=== PATIENT | female | born 1995 | race Caucasian/White ===

== ENCOUNTER → 2017-09-27 | Outpatient (CLI) | payer OTHER ==
[~2017-09-27] MED LIST: CHOL10005 PO; FOLI-68 PO; LAMO250T2 PO; LEVE500T73 PO; LEVO75TA73 PO; NORG1TAB74 PO
[2017-09-27 15:44] LABS: PLATELET COUNT, AUTOMATED 233 K/uL (150-450)
== END ==
LOC: LAB 15:13
PROVIDERS: ATTEND Physician Assistant
DX: G40.209 Localization-related (focal) (partial) symptomatic epilepsy and epileptic syndromes with complex partial seizures, not intractable, without status epilepticus (principal); E03.9 Hypothyroidism, unspecified
CPT/HCPCS: 36415; 80175; 80177; 82040; 82247; 82248; 84075; 84155; 84443; 84450; 84460; 85025

== ENCOUNTER 2018-01-19 18:01 | Emergency (ER) | payer OTHER ==
--- NOTE | 2018-01-19 18:03 | ER Report ---
History and Physical Time Seen By MD: 18:03 HPI/ROS CHIEF COMPLAINT: chest pain HISTORY OF PRESENT ILLNESS: This is a 22 year old female. She came to the ER from urgent care. She had been having some swelling around her eyes and a rash earlier today. Was also having some chest pain when trying to swallow, that would radiate from central chest up to her neck. Worsened when trying to swallow water or food. Started today while walking her dog. Discussed these symptoms with the pharmacist who recommended going to urgent care. She went to urgent care. Was given some Benadryl and Pepcid and Solu-Medrol. The rash and swelling is better, but pain in the chest and swallowing problems remain. She has no fevers or chills. She does share that she has had a problem with food getting stuck in her esophagus in the past as well. No fevers or chills. No other aggravating or relieving factors. She has no nausea or vomiting at this time. She feels a little short of breath. Very anxious as well. REVIEW OF SYSTEMS: Constitutional: No fevers or chills. Eyes: No vision changes. ENT: No sore throat. No congestion. Cardiovascular: No palpitations. Respiratory: No cough. Gastrointestinal: No abdominal pain. Genitourinary: No dysuria or trouble urinating. Skin: As above. Neurological: No weakness. No headache. Allergies: Coded Allergies: No Known Drug Allergies (Unverified , 01/19/18) Home Meds Active Scripts Ondansetron (ZOFRAN ODT) 4 Mg Tab.rapdis, 4 MG PO Q6H Y for NAUSEA/VOMITING, # 20 TAB.MATILDA 0 Refills Prov:NICKY BOBBY MD 01/19/18 Dicyclomine Hcl (DICYCLOMINE HCL) 10 Mg Capsule, 10 MG PO QID Y for SPASMS, #20 CAPSULE 0 Refills Prov:NICKY BOBBY MD 01/19/18 Reported Medications Clonazepam (CLONAZEPAM) 0.125 Mg Tab.rapdis, 0.125 MG PO DAILY, #7 TAB 01/19/18 Levothyroxine Sodium (LEVOTHYROXINE SODIUM) 75 Mcg Tablet, 75 MCG PO QDAY, TAB 04/24/17 Levetiracetam (LEVETIRACETAM) 500 Mg Tablet, 500 MG PO BID 04/24/17 Lamotrigine (LAMOTRIGINE) 250 Mg Tab.er.24, 250 MG PO BID 04/24/17 Discontinued Reported Medications Norgestimate-Ethinyl Estradiol (SPRINTEC) 1 Each Tablet, 1 EACH PO DAILY 04/24/17 Cholecalciferol (Vitamin D3) (VITAMIN D3) 1,000 Unit Tablet, 1000 UNIT PO DAILY , TAB 04/24/17 Folic Acid (FOLIC ACID) 1 Mg Tablet, 1 MG PO QDAY, TAB 04/24/17 Reviewed Nurses Notes: Yes Constitutional Vital Sign - Last 24 Hours 01/19/18 01/19/18 01/19/18 01/19/18 18:04 18:06 18:30 18:31 Temp 98.7 Pulse 102 112 Resp 20 B/P (MAP) 122/82 122/82 (95) 99/69 (79) Pulse Ox 98 O2 Delivery Room Air 01/19/18 01/19/18 01/19/18 01/19/18 19:00 19:30 19:31 19:40 Pulse 116 99 Resp 28 B/P (MAP) 101/69 (80) 113/72 (86) 108/71 (83) Pulse Ox 95 88 01/19/18 01/19/18 01/19/18 01/19/18 20:19 20:30 20:35 21:00 Pulse 107 Resp 9 B/P (MAP) 113/77 (89) 116/77 (90) 115/74 (88) Pulse Ox 95 01/19/18 01/19/18 21:05 21:32 Pulse ??? 115 B/P (MAP) 104/76 (85) Pulse Ox 96 Physical Exam General Appearance: The patient is alert. Anxious, and having mild distress due to her symptoms. Non-toxic in appearance. Eyes: Pupils are equal, round. No pallor, injection or icterus. ENT: Mucous membranes are moist. Normal oral mucosa. Posterior oropharynx is normal. Normal tympanic membranes and canals. Neck: Supple and non tender. No lymphadenopathy. Respiratory: Lungs are clear to auscultation. There are no retractions or accessory muscle use. Cardiovascular: Regular rate and rhythm. No murmurs, gallops or rubs. Normal capillary refill. No edema. Gastrointestinal: Abdomen is soft and non tender. Nondistended. Normal active bowel sounds. No costovertebral angle tenderness with percussion. Neurological: Alert and oriented x3. Cranial nerves II through XII show no acute deficits on my exam. No focal neurologic deficits in the extremities. Skin: Warm and dry. No rashes. Musculoskeletal: Extremities are nontender. Full range of motion. No tenderness in palpation of the cervical, thoracic and lumbar spine. Has some reproducible pain with palpation of the chest that seems to increase spasms in her throat and extends up to her neck. DIFFERENTIAL DIAGNOSIS: After history and physical exam, differential diagnosis was considered for chest pain including but not limited to myocardial ischemia, pericarditis pulmonary embolus, chest wall pain, pleural inflammation and pulmonary infectious causes. We'll look at these various causes but also consider that this sounds more like esophageal spasming, especially with her history of having food getting stuck in her esophagus in the past and will likely need to see a GI specialist or someone who can perform an EGD. Medical Decision Making Data Points Result Diagram: 01/19/18 18101/19/18 181 Laboratory Hematology Test 01/19/18 18:13 01/19/18 19:42 Red Blood Count 4.57 M/uL (4.17-5.56) Mean Corpuscular Volume 91.2 fL (80.0-96.0) Mean Corpuscular Hemoglobin 31.1 pg (26.0-33.0) Mean Corpuscular Hemoglobin Concent 34.1 g/dL (32.0-36.0) Red Cell Distribution Width 14.2 % (11.5-14.5) Mean Platelet Volume 8.3 fL (7.2-11.1) Neutrophils (%) (Auto) 82.3 % (39.4-72.5) Lymphocytes (%) (Auto) 13.8 % (17.6-49.6) Monocytes (%) (Auto) 2.8 % (4.1-12.4) Eosinophils (%) (Auto) 0.9 % (0.4-6.7) Basophils (%) (Auto) 0.2 % (0.3-1.4) Nucleated RBC Relative Count (auto) 0.0 /100WBC Neutrophils # (Auto) 9.2 K/uL (2.0-7.4) Lymphocytes # (Auto) 1.5 K/uL (1.3-3.6) Monocytes # (Auto) 0.3 K/uL (0.3-1.0) Eosinophils # (Auto) 0.1 K/uL (0.0-0.5) Basophils # (Auto) 0.0 K/uL (0.0-0.1) Nucleated RBC Absolute Count (auto) 0.00 K/uL D-Dimer Quantitative (PE/DVT) 0.60 ug/ml (0-0.50) Sodium Level 145 mmol/L (137-145) Potassium Level 3.5 mmol/L (3.5-5.0) Chloride Level 108 mmol/L (98-107) Carbon Dioxide Level 21 mmol/L (22-31) Blood Urea Nitrogen 17 mg/dl (7-18) Creatinine 1.00 mg/dl (0.52-1.04) Glomerular Filtration Rate Calc > 60.0 Random Glucose 108 mg/dl (75-110) Calcium Level 9.3 mg/dl (8.4-10.2) Total Bilirubin 0.3 mg/dl (0.2-1.3) Aspartate Amino Transf (AST/SGOT) 24 U/L (0-35) Alanine Aminotransferase (ALT/SGPT) 22 U/L (0-56) Alkaline Phosphatase 81 U/L (0-126) Troponin I < 0.012 ng/ml C-Reactive Protein < 0.5 mg/dl (<1.0) Total Protein 7.6 gm/dl (6.3-8.2) Albumin 4.3 g/dl (3.5-5.0) Human Chorionic Gonadotropin, Qual Negative (NEGATIVE) Urine Color Colorless Urine Clarity Clear Urine pH 5.0 pH (4.8-9.5) Urine Specific [place] 1.006 Urine Protein Negative mg/dL (NEGATIVE) Urine Glucose (UA) Negative mg/dL (NEGATIVE) Urine Ketones Negative mg/dL (NEGATIVE) Urine Blood Negative (NEGATIVE) Urine Nitrite Negative (NEGATIVE) Urine Bilirubin Negative (NEGATIVE) Urine Urobilinogen Negative mg/dL (0.2-1.9) Urine Leukocyte Esterase Negative (NEGATIVE) Urine RBC <1 /HPF (0-2/HPF) Urine WBC 1 /HPF (0-5/HPF) Urine Squamous Epithelial Cells None /LPF (</=FEW) Urine Bacteria Negative /HPF (NONE-FEW) Urine Hyaline Casts Few /LPF (NONE-FEW) Urine Mucus None /HPF (NONE-FEW) Chemistry Test 01/19/18 18:13 01/19/18 19:42 White Blood Count 11.2 k/uL (4.5-11.0) Red Blood Count 4.57 M/uL (4.17-5.56) Hemoglobin 14.2 g/dL (12.0-16.0) Hematocrit 41.7 % (34.0-47.0) Mean Corpuscular Volume 91.2 fL (80.0-96.0) Mean Corpuscular Hemoglobin 31.1 pg (26.0-33.0) Mean Corpuscular Hemoglobin Concent 34.1 g/dL (32.0-36.0) Red Cell Distribution Width 14.2 % (11.5-14.5) Platelet Count 203 K/uL (150-450) Mean Platelet Volume 8.3 fL (7.2-11.1) Neutrophils (%) (Auto) 82.3 % (39.4-72.5) Lymphocytes (%) (Auto) 13.8 % (17.6-49.6) Monocytes (%) (Auto) 2.8 % (4.1-12.4) Eosinophils (%) (Auto) 0.9 % (0.4-6.7) Basophils (%) (Auto) 0.2 % (0.3-1.4) Nucleated RBC Relative Count (auto) 0.0 /100WBC Neutrophils # (Auto) 9.2 K/uL (2.0-7.4) Lymphocytes # (Auto) 1.5 K/uL (1.3-3.6) Monocytes # (Auto) 0.3 K/uL (0.3-1.0) Eosinophils # (Auto) 0.1 K/uL (0.0-0.5) Basophils # (Auto) 0.0 K/uL (0.0-0.1) Nucleated RBC Absolute Count (auto) 0.00 K/uL D-Dimer Quantitative (PE/DVT) 0.60 ug/ml (0-0.50) Glomerular Filtration Rate Calc > 60.0 Calcium Level 9.3 mg/dl (8.4-10.2) Total Bilirubin 0.3 mg/dl (0.2-1.3) Aspartate Amino Transf (AST/SGOT) 24 U/L (0-35) Alanine Aminotransferase (ALT/SGPT) 22 U/L (0-56) Alkaline Phosphatase 81 U/L (0-126) Troponin I < 0.012 ng/ml C-Reactive Protein < 0.5 mg/dl (<1.0) Total Protein 7.6 gm/dl (6.3-8.2) Albumin 4.3 g/dl (3.5-5.0) Human Chorionic Gonadotropin, Qual Negative (NEGATIVE) Urine Color Colorless Urine Clarity Clear Urine pH 5.0 pH (4.8-9.5) Urine Specific [place] 1.006 Urine Protein Negative mg/dL (NEGATIVE) Urine Glucose (UA) Negative mg/dL (NEGATIVE) Urine Ketones Negative mg/dL (NEGATIVE) Urine Blood Negative (NEGATIVE) Urine Nitrite Negative (NEGATIVE) Urine Bilirubin Negative (NEGATIVE) Urine Urobilinogen Negative mg/dL (0.2-1.9) Urine Leukocyte Esterase Negative (NEGATIVE) Urine RBC <1 /HPF (0-2/HPF) Urine WBC 1 /HPF (0-5/HPF) Urine Squamous Epithelial Cells None /LPF (</=FEW) Urine Bacteria Negative /HPF (NONE-FEW) Urine Hyaline Casts Few /LPF (NONE-FEW) Urine Mucus None /HPF (NONE-FEW) Coagulation Test 01/19/18 18:13 D-Dimer Quantitative (PE/DVT) 0.60 ug/ml Urinalysis Test 01/19/18 19:42 Urine Color Colorless Urine Clarity Clear Urine pH 5.0 pH (4.8-9.5) Urine Specific [place] 1.006 Urine Protein Negative mg/dL (NEGATIVE) Urine Glucose (UA) Negative mg/dL (NEGATIVE) Urine Ketones Negative mg/dL (NEGATIVE) Urine Blood Negative (NEGATIVE) Urine Nitrite Negative (NEGATIVE) Urine Bilirubin Negative (NEGATIVE) Urine Urobilinogen Negative mg/dL (0.2-1.9) Urine Leukocyte Esterase Negative (NEGATIVE) Urine RBC <1 /HPF (0-2/HPF) Urine WBC 1 /HPF (0-5/HPF) Urine Squamous Epithelial Cells None /LPF (</=FEW) Urine Bacteria Negative /HPF (NONE-FEW) Urine Hyaline Casts Few /LPF (NONE-FEW) Urine Mucus None /HPF (NONE-FEW) EKG/Imaging Imaging Examination: CHEST PA AND LAT Comparison: None. History: short of breath, chest pain Findings: No consolidation, nodule, or peribronchial inflammation. No pneumothorax, edema, or effusion. Cardiac and hilar contour size is within normal limits. Visualized bowel gas pattern is unremarkable. Pectus excavatum. IMPRESSION: No evidence of acute cardiopulmonary disease. Report Dictated By: Rosas Wilson MD at 01/19/2018 7:17 PM EXAMINATION: CTA of the chest with IV contrast HISTORY: Chest pain. Shortness of breath. TECHNIQUE: Pulmonary embolus protocol - Thin axial CT images of the chest were obtained with IV contrast during maximal pulmonary arterial opacification. Reconstruction of the source data includes multiplanar 2D coronal and sagittal reconstructed images, and 3D coronal and sagittal MIP images. Vessel Welder images have been stored on PACS. One of the following dose optimization techniques was utilized in the performance of this exam: Automated exposure control; adjustment of the mA and/ or kV according to the patient's size; or use of an iterative reconstruction technique. Specific details can be referenced in the facility's radiology CT exam operational policy. Contrast: 75 mL of IV Isovue-370. COMPARISON: None. FINDINGS: Pulmonary arteries: The pulmonary arteries are well opacified, without suspicious filling defect. Heart, aorta, and great vessels: Normal caliber thoracic aorta, without aneurysm or dissection. Normal heart size. No pericardial effusion. Lungs and pleura: Punctate calcified granuloma in the central right lung base. The lungs are otherwise clear. No focal consolidation. No pleural effusion or pneumothorax. The central airways are patent. Mediastinum and kendra: Negative. Visualized upper abdomen: Unremarkable. Chest wall: Negative. Bones: Negative. IMPRESSION: 1. No evidence of pulmonary embolism. 2. No other acute findings in the chest. The lungs are clear. Report Dictated By: Tomer Meyer MD at 01/19/2018 8:34 PM ED Course/Re-evaluation Clinical Indication for ER IV: Hydration, IV Access ED Course After arrival and evaluation as noted above, the patient was given Ativan 0.5 mg IV, and a liter of normal saline. EKG was done as noted above and negative. Labs obtained. Labs unremarkable other than an elevation of the d-dimer with mild elevation. Troponin was negative. No signs of ischemia on EKG. Chest x-ray was negative. CT angiogram was obtained and was negative for PE or other pathology. Discussed all of this with the patient. Recommended follow-up with either general surgery or gastroenterology who can perform an EGD. We will give her some Bentyl to use to try and decrease spasming of the esophagus which seems to be the cause of her symptoms. Decision to Disposition Date: January 19, 2018 Decision to Disposition Time: 21:31 Depart Departure Latest Vital Signs Vital Signs Date Time Temp Pulse Resp B/P (MAP) Pulse Ox O2 Delivery O2 Flow Rate FiO2 01/19/18 21:32 115 104/76 (85) 96 01/19/18 20:35 9 01/19/18 18:04 98.7 Room Air Impression: Primary Impression: Esophageal spasm Condition: Improved Disposition: HOME OR SELF-CARE Referrals: HARRIET DARNELL MD New Scripts Ondansetron (ZOFRAN ODT) 4 Mg Tab.rapdis 4 MG PO Q6H Y for NAUSEA/VOMITING, #20 TAB.MATILDA 0 Refills Prov: NICKY BOBBY MD 01/19/18 Dicyclomine Hcl (DICYCLOMINE HCL) 10 Mg Capsule 10 MG PO QID Y for SPASMS, #20 CAPSULE 0 Refills Prov: NICKY BOBBY MD 01/19/18 Patient Instructions: Esophageal Spasm (ED) Additional Instructions: We did not find anything dangerous on imaging, EKG, or labs tonight. We think that the pain you are having is from esophageal spasms. This may be related to some narrowing of the esophagus, what is called strictures. Follow-up with a general surgeon or set up mechanic coating machines will be needed and they will need to consider doing an upper endoscopy to look at the esophagus. You can try taking some Bentyl 10mg capsules, take 1 every 6 hours as needed for spasms. You can take Tylenol or Ibuprofen as needed for pain as well. Start taking Zantac 150mg twice a day or Pepcid 20mg twice a day for decreasing acid as well. Zofran 4mg oral dissolving tablets, 1 every 6 hours as needed for nausea or vomiting. NICKY BOBBY MD January 19, 2018 18:03
[2018-01-19] MEDS ORDERED: CLON0.125 PO (18:07)
[2018-01-19] MEDS ORDERED: LORazepam 2 MG/ML VIAL IVP ONE (18:10)
[2018-01-19] MEDS ORDERED: NS(*) 0.9% 1000 ML BAG 1,000 ML IV ONE (18:10)
[2018-01-19 18:25] LABS: PLATELET COUNT, AUTOMATED 203 K/uL (150-450)
--- NOTE | 2018-01-19 18:36 | EKG ---
FACILITY: [facility] PATIENT NAME: AMADA ANDUJAR : [id number] MR: [id number] V: [id number] EXAM DATE: ORDERING PHYSICIAN: NICKY BOBBY TECHNOLOGIST: JUN Test Reason : CP Blood Pressure : / mmHG Vent. Rate : 097 BPM Atrial Rate : 097 BPM P-R Int : 136 ms QRS Dur : 078 ms QT Int : 358 ms P-R-T Axes : 078 066 044 degrees QTc Int : 454 ms Normal sinus rhythm Normal ECG No previous ECGs available Confirmed by BOBBY GILL ([id number]) on 01/20/2018 2:59:42 PM Referred By: KANU Confirmed By:BOBBY GILL
--- NOTE | 2018-01-19 19:23 | RADIOLOGY IMAGING REPORT ---
FACILITY: [facility] PATIENT NAME: Kristen Pierre : 1995 MR: [id number] V: [id number] EXAM DATE: ORDERING PHYSICIAN: NICKY BOBBY TECHNOLOGIST: Location: [facility] Patient: Kristen Pierre : 1995 Visit/Account:[id number] Date of Sevice: 01/19/2018 Examination: CHEST PA AND LAT Comparison: None. History: short of breath, chest pain Findings: No consolidation, nodule, or peribronchial inflammation. No pneumothorax, edema, or effusio n. Cardiac and hilar contour size is within normal limits. Visualized bowel gas pattern is unremarkab le. Pectus excavatum. IMPRESSION: No evidence of acute cardiopulmonary disease. Report Dictated By: Rosas Wilson MD at 01/19/2018 7:17 PM Report E-Signed By: Rosas Wilson MD at 01/19/2018 7:18 PM WSN:[id number]
[2018-01-19] MEDS ORDERED: IOPAMIDOL 76% 75 ML INFUS BTL 75 ML ONE (19:32)
[2018-01-19] MEDS ORDERED: ACETAMINOPHEN 500 MG TAB PO ONE (20:25)
--- NOTE | 2018-01-19 20:44 | RADIOLOGY IMAGING REPORT ---
FACILITY: [facility] [place] PATIENT NAME: Kristen Pierre : 1995 MR: [id number] V: [id number] EXAM DATE: ORDERING PHYSICIAN: NICKY BOBBY TECHNOLOGIST: Location: [facility] Patient: Kristen Pierre : 1995 Visit/Account:[id number] Date of Sevice: 01/19/2018 EXAMINATION: CTA of the chest with IV contrast HISTORY: Chest pain. Shortness of breath. TECHNIQUE: Pulmonary embolus protocol - Thin axial CT images of the chest were obtained with IV con trast during maximal pulmonary arterial opacification. Reconstruction of the source data includes mul tiplanar 2D coronal and sagittal reconstructed images, and 3D coronal and sagittal MIP images. Repres entative images have been stored on PACS. One of the following dose optimization techniques was utilized in the performance of this exam: Autom ated exposure control; adjustment of the mA and/or kV according to the patient's size; or use of an i terative reconstruction technique. Specific details can be referenced in the facility's radiology C T exam operational policy. Contrast: 75 mL of IV Isovue-370. COMPARISON: None. FINDINGS: Pulmonary arteries: The pulmonary arteries are well opacified, without suspicious filling defect. Heart, aorta, and great vessels: Normal caliber thoracic aorta, without aneurysm or dissection. Norm al heart size. No pericardial effusion. Lungs and pleura: Punctate calcified granuloma in the central right lung base. The lungs are otherwis e clear. No focal consolidation. No pleural effusion or pneumothorax. The central airways are patent. Mediastinum and kendra: Negative. Visualized upper abdomen: Unremarkable. Chest wall: Negative. Bones: Negative. IMPRESSION: 1. No evidence of pulmonary embolism. 2. No other acute findings in the chest. The lungs are clear. Report Dictated By: Tomer Meyer MD at 01/19/2018 8:34 PM Report E-Signed By: Tomer Meyer MD at 01/19/2018 8:39 PM WSN:[id number]
[2018-01-19] MEDS ORDERED: ONDANSETRON 4 MG ODT TH SL ONE (21:30)
[2018-01-19] MEDS ORDERED: DICYCLOMINE HCL 10 MG CAP PO ONE (21:30)
[2018-01-19 21:32] VITALS: BP 104/76
[2018-01-19] MEDS ORDERED: ONDA4TAB PO (21:36)
[2018-01-19] MEDS ORDERED: DICY10CA11 PO (21:36)
== END 2018-01-19 21:48 | disposition home or self-care (01) ==
LOC: ER 18:19
DX: K22.4 Dyskinesia of esophagus (principal)
CPT/HCPCS: 81001; 84484; 84703; 85025; 85379; 86140; 93005; 96361; 96374; 99284; J2060; J7030; Q9967; S0119; 71046; 71275; 82040; 82247; 82310; 82374; 82435; 82565; 82947; 84075; 84132; 84155; 84295; 84450; 84460; 84520

== ENCOUNTER 2018-03-16 12:54 | Emergency (ER) | payer BC, OTHER ==
[~2018-03-16 12:54] MED LIST changes: +CLON0.125 PO; +DICY10CA11 PO; +ONDA4TAB PO
[2018-03-16] MEDS ORDERED: LEVO75TA73 PO (13:06)
[2018-03-16] MEDS ORDERED: MEDR150V11 (13:06)
[2018-03-16] MEDS ORDERED: OMEP-125 PO (13:06)
[2018-03-16 13:58] LABS: PLATELET COUNT, AUTOMATED 213 K/uL (150-450)
--- NOTE | 2018-03-16 14:06 | ER Report ---
History and Physical Time Seen By MD: 13:04 Hx. of Stated Complaint: pt reports si HPI/ROS CHIEF COMPLAINT: Suicidal ideation HISTORY OF PRESENT ILLNESS: 23-year-old female patient presents to emergency room with complaint of suicidal ideation. Patient states she's been having a hard time recently. She did having troubles with some friends, she been having some troubles at work. She states that she feels like has, culminated and she's been very stressed out. She states that last night she was having some suicidal thoughts. She did have a plan of taking Excedrin. She states she was going to take a lot of Excedrin to kill herself. She states that she had a friend who came over and abstain the night. She states she did feel better while they were there. However this morning she is having those thoughts returned. She is having suicidal thoughts that are persistent throughout the day. She states she still does have a plan to take the Excedrin. She come here to the emergency room for evaluation and help. REVIEW OF SYSTEMS: Respiratory: No cough, no dyspnea. Cardiovascular: No chest pain, no palpitations. Gastrointestinal: No vomiting, no abdominal pain. Musculoskeletal: No back pain. Allergies: Coded Allergies: No Known Drug Allergies (Unverified , 03/16/18) Home Meds Active Scripts Dicyclomine Hcl (DICYCLOMINE HCL) 10 Mg Capsule, 10 MG PO QID Y for SPASMS, #20 CAPSULE 0 Refills Prov:NICKY BOBBY MD 01/19/18 Reported Medications Medroxyprogesterone Acetate (DEPO-PROVERA) 150 Mg/1 Ml Vial, [id number] 03/16/18 Omeprazole (OMEPRAZOLE) 20 Mg Capsule.dr, 1 CAP PO QDAY, CAP 03/16/18 Levothyroxine Sodium (LEVOTHYROXINE SODIUM) 75 Mcg Tablet, 37.5 MCG PO QDAY, TAB 03/16/18 Clonazepam (CLONAZEPAM) 0.125 Mg Tab.rapdis, 0.125 MG PO DAILY, #7 TAB 01/19/18 Levetiracetam (LEVETIRACETAM) 500 Mg Tablet, 500 MG PO BID 04/24/17 Lamotrigine (LAMOTRIGINE) 250 Mg Tab.er.24, 250 MG PO BID 04/24/17 Discontinued Reported Medications Levothyroxine Sodium (LEVOTHYROXINE SODIUM) 75 Mcg Tablet, 75 MCG PO QDAY, TAB 04/24/17 Discontinued Scripts Ondansetron (ZOFRAN ODT) 4 Mg Tab.rapdis, 4 MG PO Q6H Y for NAUSEA/VOMITING, # 20 TAB.MATILDA 0 Refills Prov:NICKY BOBBY MD 01/19/18 Past Medical/Surgical History Patient has a past medical history of seizures, hypothyroidism. Patient denies any surgical history. Reviewed Nurses Notes: Yes Constitutional Vital Sign - Last 24 Hours 03/16/18 03/16/18 03/16/18 03/16/18 12:55 13:04 13:09 13:24 Temp 98.2 Pulse 91 93 81 Resp 16 B/P (MAP) 123/91 123/91 (102) Pulse Ox 98 96 97 O2 Delivery Room Air 03/16/18 03/16/18 03/16/18 03/16/18 13:30 13:39 13:44 14:00 Pulse 86 84 B/P (MAP) 107/86 (93) 114/83 (93) Pulse Ox 96 95 03/16/18 03/16/18 03/16/18 03/16/18 14:14 14:30 15:00 15:30 Pulse 85 B/P (MAP) 114/95 (101) 112/79 (90) 113/79 (90) Pulse Ox 94 03/16/18 03/16/18 03/16/18 03/16/18 15:35 15:50 16:00 16:05 Pulse 92 81 77 B/P (MAP) 114/83 (93) Pulse Ox 96 93 97 03/16/18 03/16/18 16:20 16:30 Pulse 81 B/P (MAP) 123/94 (104) Pulse Ox 98 Physical Exam General Appearance: The patient is alert, has no immediate need for airway protection and no current signs of toxicity. ENT: Tympanic membranes are pearly-feldman, auditory canals are patent. Respiratory: Chest is non tender, lungs are clear to auscultation. Cardiac: regular rate and rhythm Gastrointestinal: Abdomen is soft and non tender, no masses, bowel sounds normal. Musculoskeletal: Neck: Neck is supple and non tender. Extremities have full range of motion and are non tender. Skin: No rashes or lesions. Psych: Patient is tearful. She is unable to maintain eye contact. Rate is speech is slow. DIFFERENTIAL DIAGNOSIS: After history and physical exam differential diagnosis was considered for depression, suicidal ideation. Medical Decision Making Data Points Result Diagram: 03/16/18 1330 03/16/18 1330 Laboratory Hematology Test 03/16/18 13:00 03/16/18 13:30 Urine Color Yellow Urine Clarity Slightly-cloudy Urine pH 5.0 pH (4.8-9.5) Urine Specific Cheney 1.024 Urine Protein Negative mg/dL (NEGATIVE) Urine Glucose (UA) Negative mg/dL (NEGATIVE) Urine Ketones Negative mg/dL (NEGATIVE) Urine Blood Negative (NEGATIVE) Urine Nitrite Negative (NEGATIVE) Urine Bilirubin Negative (NEGATIVE) Urine Urobilinogen Negative mg/dL (0.2-1.9) Urine Leukocyte Esterase Trace (NEGATIVE) Urine RBC 1 /HPF (0-2/HPF) Urine WBC 4 /HPF (0-5/HPF) Urine Squamous Epithelial Cells Many /LPF (</=FEW) Urine Bacteria Few /HPF (NONE-FEW) Urine Mucus Few /HPF (NONE-FEW) Urine HCG, Qualitative Negative (NEGATIVE) Urine Opiates Screen Negative Urine Barbiturates Screen Negative Ur Tricyclic Antidepressants Screen Negative Urine Phencyclidine Screen Negative Urine Amphetamines Screen Negative Urine Benzodiazepines Screen Negative Urine Cocaine Screen Negative Urine Cannabinoids Screen Negative Red Blood Count 4.37 M/uL (4.17-5.56) Mean Corpuscular Volume 91.9 fL (80.0-96.0) Mean Corpuscular Hemoglobin 31.6 pg (26.0-33.0) Mean Corpuscular Hemoglobin Concent 34.3 g/dL (32.0-36.0) Red Cell Distribution Width 13.2 % (11.5-14.5) Mean Platelet Volume 8.1 fL (7.2-11.1) Neutrophils (%) (Auto) 70.0 % (39.4-72.5) Lymphocytes (%) (Auto) 23.0 % (17.6-49.6) Monocytes (%) (Auto) 5.6 % (4.1-12.4) Eosinophils (%) (Auto) 1.1 % (0.4-6.7) Basophils (%) (Auto) 0.3 % (0.3-1.4) Nucleated RBC Relative Count (auto) 0.0 /100WBC Neutrophils # (Auto) 5.6 K/uL (2.0-7.4) Lymphocytes # (Auto) 1.8 K/uL (1.3-3.6) Monocytes # (Auto) 0.4 K/uL (0.3-1.0) Eosinophils # (Auto) 0.1 K/uL (0.0-0.5) Basophils # (Auto) 0.0 K/uL (0.0-0.1) Nucleated RBC Absolute Count (auto) 0.00 K/uL Sodium Level 141 mmol/L (137-145) Potassium Level 3.6 mmol/L (3.5-5.0) Chloride Level 105 mmol/L (98-107) Carbon Dioxide Level 23 mmol/L (22-31) Blood Urea Nitrogen 11 mg/dl (7-18) Creatinine 0.90 mg/dl (0.52-1.04) Glomerular Filtration Rate Calc > 60.0 Random Glucose 93 mg/dl (75-110) Calcium Level 9.2 mg/dl (8.4-10.2) Magnesium Level 1.8 mg/dl (1.7-2.2) Total Bilirubin 0.5 mg/dl (0.2-1.3) Aspartate Amino Transf (AST/SGOT) 21 U/L (0-35) Alanine Aminotransferase (ALT/SGPT) 16 U/L (0-56) Alkaline Phosphatase 64 U/L (0-126) Total Protein 7.9 g/dl (6.3-8.2) Albumin 4.6 g/dl (3.5-5.0) Thyroid Stimulating Hormone (TSH) 1.69 uIU/ml (0.46-4.68) Salicylates Level < 10 mg/L Salicylate Last Dose Date unk Acetaminophen Level < 10 ug/ml Serum Alcohol < 10 mg/dl Chemistry Test 03/16/18 13:00 03/16/18 13:30 Urine Color Yellow Urine Clarity Slightly-cloudy Urine pH 5.0 pH (4.8-9.5) Urine Specific Cheney 1.024 Urine Protein Negative mg/dL (NEGATIVE) Urine Glucose (UA) Negative mg/dL (NEGATIVE) Urine Ketones Negative mg/dL (NEGATIVE) Urine Blood Negative (NEGATIVE) Urine Nitrite Negative (NEGATIVE) Urine Bilirubin Negative (NEGATIVE) Urine Urobilinogen Negative mg/dL (0.2-1.9) Urine Leukocyte Esterase Trace (NEGATIVE) Urine RBC 1 /HPF (0-2/HPF) Urine WBC 4 /HPF (0-5/HPF) Urine Squamous Epithelial Cells Many /LPF (</=FEW) Urine Bacteria Few /HPF (NONE-FEW) Urine Mucus Few /HPF (NONE-FEW) Urine HCG, Qualitative Negative (NEGATIVE) Urine Opiates Screen Negative Urine Barbiturates Screen Negative Ur Tricyclic Antidepressants Screen Negative Urine Phencyclidine Screen Negative Urine Amphetamines Screen Negative Urine Benzodiazepines Screen Negative Urine Cocaine Screen Negative Urine Cannabinoids Screen Negative White Blood Count 8.0 k/uL (4.5-11.0) Red Blood Count 4.37 M/uL (4.17-5.56) Hemoglobin 13.8 g/dL (12.0-16.0) Hematocrit 40.1 % (34.0-47.0) Mean Corpuscular Volume 91.9 fL (80.0-96.0) Mean Corpuscular Hemoglobin 31.6 pg (26.0-33.0) Mean Corpuscular Hemoglobin Concent 34.3 g/dL (32.0-36.0) Red Cell Distribution Width 13.2 % (11.5-14.5) Platelet Count 213 K/uL (150-450) Mean Platelet Volume 8.1 fL (7.2-11.1) Neutrophils (%) (Auto) 70.0 % (39.4-72.5) Lymphocytes (%) (Auto) 23.0 % (17.6-49.6) Monocytes (%) (Auto) 5.6 % (4.1-12.4) Eosinophils (%) (Auto) 1.1 % (0.4-6.7) Basophils (%) (Auto) 0.3 % (0.3-1.4) Nucleated RBC Relative Count (auto) 0.0 /100WBC Neutrophils # (Auto) 5.6 K/uL (2.0-7.4) Lymphocytes # (Auto) 1.8 K/uL (1.3-3.6) Monocytes # (Auto) 0.4 K/uL (0.3-1.0) Eosinophils # (Auto) 0.1 K/uL (0.0-0.5) Basophils # (Auto) 0.0 K/uL (0.0-0.1) Nucleated RBC Absolute Count (auto) 0.00 K/uL Glomerular Filtration Rate Calc > 60.0 Calcium Level 9.2 mg/dl (8.4-10.2) Magnesium Level 1.8 mg/dl (1.7-2.2) Total Bilirubin 0.5 mg/dl (0.2-1.3) Aspartate Amino Transf (AST/SGOT) 21 U/L (0-35) Alanine Aminotransferase (ALT/SGPT) 16 U/L (0-56) Alkaline Phosphatase 64 U/L (0-126) Total Protein 7.9 g/dl (6.3-8.2) Albumin 4.6 g/dl (3.5-5.0) Thyroid Stimulating Hormone (TSH) 1.69 uIU/ml (0.46-4.68) Salicylates Level < 10 mg/L Salicylate Last Dose Date unk Acetaminophen Level < 10 ug/ml Serum Alcohol < 10 mg/dl Toxicology Test 03/16/18 13:00 03/16/18 13:30 Urine Opiates Screen Negative Urine Barbiturates Screen Negative Ur Tricyclic Antidepressants Screen Negative Urine Phencyclidine Screen Negative Urine Amphetamines Screen Negative Urine Benzodiazepines Screen Negative Urine Cocaine Screen Negative Urine Cannabinoids Screen Negative Salicylates Level < 10 mg/L Salicylate Last Dose Date unk Acetaminophen Level < 10 ug/ml Serum Alcohol < 10 mg/dl Urinalysis Test 03/16/18 13:00 Urine Color Yellow Urine Clarity Slightly-cloudy Urine pH 5.0 pH (4.8-9.5) Urine Specific Cheney 1.024 Urine Protein Negative mg/dL (NEGATIVE) Urine Glucose (UA) Negative mg/dL (NEGATIVE) Urine Ketones Negative mg/dL (NEGATIVE) Urine Blood Negative (NEGATIVE) Urine Nitrite Negative (NEGATIVE) Urine Bilirubin Negative (NEGATIVE) Urine Urobilinogen Negative mg/dL (0.2-1.9) Urine Leukocyte Esterase Trace (NEGATIVE) Urine RBC 1 /HPF (0-2/HPF) Urine WBC 4 /HPF (0-5/HPF) Urine Squamous Epithelial Cells Many /LPF (</=FEW) Urine Bacteria Few /HPF (NONE-FEW) Urine Mucus Few /HPF (NONE-FEW) Urine HCG, Qualitative Negative (NEGATIVE) ED Course/Re-evaluation ED Course Patient was admitted and examined, history and physical were obtained. Differential diagnoses were considered. On reexamination patient was tearful, she had a slow rate speech and had a difficult time maintaining eye contact. The lab work for [facility] were done. Labs were unremarkable. Due to patient having a plan for suicide, overdosing on Excedrin, I do have concerns would like the patient to stay. Patient states that she would like to go home with her mother and spent time with her and be monitored by her mother. I have concerns about the safety that could be obtained that way. I do feel patient needs to be admitted to [facility]. Patient states that she does not want to stay. We did agree that we would wait until her mother got here to talk with her. When her mother did arrive with who I assume is her stepfather, they do feel that the patient should be admitted. She did agree to sign in voluntarily at that point in time. Discussed case with Dr. Everett, who agreed to accept the patient for admission. After the [facility] had spoke with the patient she did request STD testing. When speaking with patient she states that she is always use condoms, but she has been with multiple partners. She states she would just like to be tested for the most common STDs. I believe that Chlamydia and gonorrhea testing would probably be sufficient at this point in time. We will go ahead and test that with the urine that we have. [facility]. Decision to Disposition Date: Mar 16, 2018 Decision to Disposition Time: 16:14 Depart Departure Latest Vital Signs Vital Signs Date Time Temp Pulse Resp B/P (MAP) Pulse Ox O2 Delivery O2 Flow Rate FiO2 03/16/18 16:30 123/94 (104) 03/16/18 16:20 81 98 03/16/18 12:55 98.2 16 Room Air Impression: Primary Impression: Suicidal ideation Condition: Condition Unchanged Disposition: XFER TO [facility] DIOR STEVE Mar 16, 2018 14:06
[2018-03-16 16:30] VITALS: BP 123/94
[2018-03-17] MEDS ORDERED: LAMO150T36 PO (12:10)
[2018-03-17] MEDS ORDERED: DILT120T13 PO (12:10)
[2018-03-17] MEDS ORDERED: CLON-304 PO (12:13)
== END 2018-03-16 17:02 ==
LOC: ER 13:03
DX: R45.851 Suicidal ideations (principal); E03.9 Hypothyroidism, unspecified
CPT/HCPCS: 80305; 80320; 80329; 81001; 81025; 82040; 82247; 82310; 82374; 82435; 82565; 82947; 83735; 84075; 84132; 84155; 84295; 84443; 84450; 84460; 84520; 85025; 87491; 87591; 99284

== ENCOUNTER 2018-03-16 16:32 | Inpatient (IN) | payer BC ==
[~2018-03-16] VITALS: Ht 167.6 cm; Wt 59.0 kg
[~2018-03-16 16:32] MED LIST changes: +MEDR150V11; +OMEP-125 PO
[2018-03-16] MEDS ORDERED: MAG HYD/AL HYD/SIMETH 30ML UDC PO PRN (17:05)
[2018-03-16 18:35] VITALS: BP 112/68
[2018-03-16 21:55] VITALS: BP 104/65
[2018-03-16] MEDS: lamoTRIgine 100 MG TAB PO SCH (22:38)
[2018-03-16] MEDS: levETIRAcetam 500 MG TAB PO SCH (22:38)
[2018-03-16] MEDS: DILTIAZEM CD 120 MG CAPCR PO SCH (22:38)
[2018-03-16] MEDS: PANTOPRAZOLE SOD 20 MG TABEC PO SCH (22:39)
[2018-03-16] MEDS: clonazePAM 1 MG TAB PO PRN (22:39)
[2018-03-17] MEDS: LEVOTHYROXINE SOD 0.075 MG TAB PO SCH (05:35)
[2018-03-17 06:28] VITALS: BP 98/66
[2018-03-17] MEDS: lamoTRIgine 100 MG TAB PO SCH ×2 (08:04→20:40)
[2018-03-17] MEDS: levETIRAcetam 500 MG TAB PO SCH ×2 (08:04→20:41)
[2018-03-17] MEDS: MULTIVITAMINS TAB PO SCH (08:05)
[2018-03-17] MEDS: ACETAMINOPHEN 325 MG TAB PO PRN ×2 (08:37→20:40)
[2018-03-17] MEDS ORDERED: DILT120T13 PO (12:10)
[2018-03-17] MEDS ORDERED: LAMO150T36 PO (12:10)
[2018-03-17] MEDS ORDERED: CLON-304 PO (12:13)
[2018-03-17] MEDS: OMEGA-3 500 MG CAP PO SCH (13:10)
[2018-03-17 20:33] VITALS: BP 102/76
[2018-03-17] MEDS: DILTIAZEM CD 120 MG CAPCR PO SCH (20:40)
[2018-03-17] MEDS: clonazePAM 1 MG TAB PO PRN (20:40)
[2018-03-17] MEDS: PANTOPRAZOLE SOD 20 MG TABEC PO SCH (20:40)
[2018-03-18] MEDS: LEVOTHYROXINE SOD 0.075 MG TAB PO SCH (05:55)
[2018-03-18 06:03] VITALS: BP 101/61
[2018-03-18] MEDS: lamoTRIgine 100 MG TAB PO SCH (08:23)
[2018-03-18] MEDS: MULTIVITAMINS TAB PO SCH (08:23)
[2018-03-18] MEDS: levETIRAcetam 500 MG TAB PO SCH (08:24)
[2018-03-18] MEDS: OMEGA-3 500 MG CAP PO SCH (08:24)
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
[2018-03-18] MEDS ORDERED: OMEG1CAP35 PO (14:20)
[2018-03-18] MEDS ORDERED: MULT-1379 PO (14:21)
--- NOTE | 2018-03-18 19:14 | DISCHARGE SUMMARY ---
DATE OF ADMISSION: March 16, 2018 DATE OF DISCHARGE: March 18, 2018 Patient was seen at approximately 0945 hours on the morning of 18 March 2018 for note concerning this dictation. FINAL DIAGNOSES 1. Adjustment disorder with depressed mood. 2. Supportive relationship with mother. 3. Patient having seizure disorder. 4. Hypothyroidism, appears well controlled at this time. REASON FOR ADMISSION This is a very pleasant, cooperative, 23-year-old female interacting well with this provider, staff overall, and patient's mother present at time of discharge. Patient was initially admitted through the Emergency Room on the March for having brief suicidal thoughts with planned overdose on Excedrin. Patient was admitted without incident. These symptoms quickly improved. They were found to be largely related to a multitude of interpersonal conflicts patient was having both at work and with ex-significant others. Please see H and P for full details. Patient did not want to change any current medications. She was encouraged to take fish oil 1000 mg over the counter daily with her regular medications. Patient took a very active role in her treatment and responded quickly to treatment. Patient also wanting to re- engage with outpatient providers which have been helpful in the past. No parasuicidal behaviors were seen. Patient's mood improved. Suicidal ideation resolved. PHYSICAL EXAMINATION Please see emergency room note. Notable for: GENERAL: A 23-year-old female, no acute medical distress. VITAL SIGNS: Vital signs at time of admission, temperature 98.2, pulse 91, respiratory rate 16, blood pressure 123/91, and pulse oximetry 98 on room air. At time of discharge from [facility], vital signs showed temperature 98.1, pulse 73, respiratory rate 15, blood pressure 101/61, pulse oximetry 95 on room air. LABORATORY DATA Vitamin D 25-hydroxy noted to be 69 and well within normal range. TSH 1.10, free T4 of 1.06, and free T3 of 2.8, all within normal range. Laboratory data upon admission, trichomonas and gonorrhea were both negative. CBC unremarkable. CMP unremarkable. TSH 1.69. Urinalysis showed trace leukocyte esterase with many squamous epithelial cells, otherwise unremarkable. screen negative. Toxicology screen negative with an undetectable serum alcohol level. MENTAL STATUS EXAMINATION GENERAL APPEARANCE, BEHAVIOR, AND ATTITUDE: At time of discharge, this is a polite, cooperative, 23-year-old female, well groomed, making good eye contact. No periods of tearfulness. Interacting in a humorous manner at times. No psychomotor agitation or retardation. No bizarre mannerisms or tics. SPEECH: Within normal limits. Regular rate, rhythm, volume, and tone. MOOD: Described as good. AFFECT: Full and mood congruent. THOUGHT PROCESSES: Logical, goal directed. No loose associations or flight of ideas. THOUGHT CONTENT: Free of auditory or visual hallucinations, ideas of reference , thought broadcasting, delusions, obsessions, compulsions. Patient adamantly denying suicidal or homicidal ideations. SENSORIUM: Clear. COGNITION: Alert and oriented to person, place, time, situation. MEMORY: Immediate, recent, and remote estimated intact. INTELLIGENCE: Average based on interview. INSIGHT AND JUDGMENT: Overall considered grossly intact in the absence of alcohol or illicit substances. Patient having some interpersonal conflicts that may arise from maladaptive personality traits. Will continue to evaluate on an outpatient basis. RESULTS OF TESTING IMAGING: None. LABORATORY DATA: See above. CONSULTATIONS None. TREATMENT Patient received medications, participated in individual and group therapy. HOSPITAL COURSE Patient responded well to therapy and took an active role in her treatment. She was continued on current outpatient medications. Patient was cautioned about drinking alcohol on top of prescribed Klonopin on an outpatient basis. Patient also encouraged to see if efforts could be made to withdraw Klonopin altogether until it was necessary for seizure control. Patient would follow up with neurologist regarding this. Patient encouraged to take all medications, however, as prescribed including Synthroid, which patient apparently went off due to being out of it, and may have contributed to recent low mood. CONDITION OF PATIENT ON DISCHARGE Stable, considered minimal risk to others, appropriate for outpatient care. DISPOSITION Patient discharged to home. She would follow up with outpatient PCP, neurology appointments, and resume treatment with an outpatient therapist. Limit alcohol intake. Crisis line was given should symptoms return. DISCHARGE MEDICATIONS 1. Cardizem CD 120 mg at bedtime. 2. Fish oil 1000 mg [id number] daily. 3. Keppra 500 mg twice daily. 4. Lamictal 150 mg twice daily. 5. Patient would continue omeprazole at home. 6. Synthroid 0.0375 mg daily. 7. Multivitamin with minerals daily. 8. Patient encouraged to use Klonopin sparingly, 0.5 mg to 1 mg at bedtime as needed. 9. Patient would continue Depo-Provera. Risks, benefits, and alternatives of above discharge plan were discussed. Informed consent was given to proceed with above discharge plan by this cooperative, competent patient and patient's mother present at time of discharge. [place]
== END 2018-03-18 17:15 | disposition home or self-care (01) | DRG 881 ==
LOC: BHS 16:32
PROVIDERS: ADMIT Psychiatry & Neurology Psychiatry; ATTEND Psychiatry & Neurology Psychiatry
DX: F43.21 Adjustment disorder with depressed mood (principal); R45.851 Suicidal ideations; T38.1X6A Underdosing of thyroid hormones and substitutes, initial encounter; E03.9 Hypothyroidism, unspecified; G40.909 Epilepsy, unspecified, not intractable, without status epilepticus; Z91.128 Patient's intentional underdosing of medication regimen for other reason; Z73.3 Stress, not elsewhere classified; Z63.0 Problems in relationship with spouse or partner
CPT/HCPCS: 36415; 82306; 84439; 84443; 84481